=== PATIENT | male | born 2000 | race Caucasian/White ===

== ENCOUNTER 2023-11-15 04:23 | Emergency (ER) | payer MEDICAID, OTHER ==
[~2023-11-15] VITALS: Ht 190.5 cm; Wt 62.5 kg
[2023-11-15] MEDS ORDERED: diphenhdrAMINE HCL 25 MG CAP PO ONE (04:45)
[2023-11-15] MEDS ORDERED: DexAMETHasone 4 MG TAB PO ONE (04:45)
[2023-11-15] MEDS ORDERED: CEPH500C PO (04:47)
[2023-11-15] MEDS ORDERED: DIPH25CA51 PO (04:47)
[2023-11-15] MEDS ORDERED: IBUP1TAB5 PO (04:47)
[2023-11-15] MEDS ORDERED: MUPI2OIN2 EX (04:47)
[2023-11-15 05:07] VITALS: BP 146/88; PULSE 98; RESP 20; TEMP 97.6; O2SAT 100
== END 2023-11-15 05:08 | disposition home or self-care (01) ==
LOC: ER 04:23
DX: S90.561A Insect bite (nonvenomous), right ankle, initial encounter (principal); Z79.899 Other long term (current) drug therapy; W57.XXXA Bitten or stung by nonvenomous insect and other nonvenomous arthropods, initial encounter; Y93.89 Activity, other specified; Y92.89 Other specified places as the place of occurrence of the external cause; Y99.8 Other external cause status
CPT/HCPCS: 99283; J8540